=== PATIENT | male | born 1940 | race Caucasian/White ===

== ENCOUNTER → 2016-07-05 | Outpatient (CLI) | payer OTHER | END | disposition home or self-care (01) | LOC: PCVCCLINIC 16:20 | PROVIDERS: ATTEND Internal Medicine | DX: I25.10 Atherosclerotic heart disease of native coronary artery without angina pectoris (principal); I25.5 Ischemic cardiomyopathy; I10 Essential (primary) hypertension; E78.5 Hyperlipidemia, unspecified; I77.9 Disorder of arteries and arterioles, unspecified | CPT/HCPCS: 80061; 93005; G0463 ==

== ENCOUNTER → 2017-03-24 | Outpatient (CLI) | payer OTHER | END | disposition home or self-care (01) | LOC: PCVCCLINIC 13:16 | DX: I25.10 Atherosclerotic heart disease of native coronary artery without angina pectoris (principal); I25.5 Ischemic cardiomyopathy; I10 Essential (primary) hypertension; I77.9 Disorder of arteries and arterioles, unspecified; E78.2 Mixed hyperlipidemia; Z79.82 Long term (current) use of aspirin; Z79.899 Other long term (current) drug therapy | CPT/HCPCS: G0463 ==

== ENCOUNTER → 2017-09-22 | Outpatient (CLI) | payer OTHER | END | disposition home or self-care (01) | LOC: PCVCCLINIC 14:15 | DX: I25.10 Atherosclerotic heart disease of native coronary artery without angina pectoris (principal); I25.5 Ischemic cardiomyopathy; I10 Essential (primary) hypertension; I65.23 Occlusion and stenosis of bilateral carotid arteries; E78.5 Hyperlipidemia, unspecified; R94.31 Abnormal electrocardiogram [ECG] [EKG]; Z79.82 Long term (current) use of aspirin; Z79.899 Other long term (current) drug therapy | CPT/HCPCS: 80061; 93005; G0463 ==

== ENCOUNTER → 2018-02-02 | Outpatient (CLI) | payer OTHER | END | disposition home or self-care (01) | LOC: PCVCCLINIC 13:22 | PROVIDERS: ATTEND Internal Medicine | DX: I25.5 Ischemic cardiomyopathy (principal); I25.10 Atherosclerotic heart disease of native coronary artery without angina pectoris; I10 Essential (primary) hypertension; E78.00 Pure hypercholesterolemia, unspecified; I65.23 Occlusion and stenosis of bilateral carotid arteries; I47.2 Ventricular tachycardia; Z79.82 Long term (current) use of aspirin | CPT/HCPCS: 36415; 93283; G0463 ==

== ENCOUNTER → 2018-02-27 | Outpatient (CLI) | payer OTHER | END | disposition home or self-care (01) | LOC: PCVCCLINIC 12:24 | PROVIDERS: ATTEND Internal Medicine | DX: I25.10 Atherosclerotic heart disease of native coronary artery without angina pectoris (principal); I25.5 Ischemic cardiomyopathy; I10 Essential (primary) hypertension; E78.5 Hyperlipidemia, unspecified; I65.23 Occlusion and stenosis of bilateral carotid arteries; I47.2 Ventricular tachycardia; G47.33 Obstructive sleep apnea (adult) (pediatric); E78.00 Pure hypercholesterolemia, unspecified; Z79.899 Other long term (current) drug therapy | CPT/HCPCS: 93005; G0463 ==

== ENCOUNTER → 2018-06-08 | Outpatient (CLI) | payer OTHER ==
--- NOTE | 2018-06-08 16:33 | PCVCIMAG ---
APPROVED REPORT Study performed: 06/08/2018 14:07:13 EXAM: Comprehensive 2D, Doppler, and color-flow Echocardiogram Patient Location: Echo lab Room #: 3Status: routine BSA: 2.22 HR: 75 bpmBP: 128/68 mmHg Other Information Study Quality: Adequate Risk Factors: Cardiac Risk Factors: HTN, Hyperlipidemia Indications Atrial Fibrillation CAD Cardiomyopathy 2D Dimensions IVSd: 13.46 (7-11mm)LVOT Diam: 22.00 (18-24mm) LVDd: 52.31 mm PWd: 13.19 (7-11mm)Ascending Ao: 33.96 (22-36mm) LVDs: 42.26 (25-40mm) Left Atrium: 44.44 (27-40mm) Aortic Root: 32.42 mm LV Single Plane 4CH: 43.17 % LV Single Plane 2CH: 46.81 % Biplane EF: 44.3 % Volumes Left Atrial Volume (Systole) Single Plane 4CH: 119.00 mLSingle Plane 2CH: 125.15 mL LA ESV Index: 55.00 mL/m2 Aortic Valve AoV Peak Tom.: 2.69 m/s AO Peak Gr.: 32.74 mmHgLVOT Max P.27 mmHg AO Mean Gr.: 18.61 mmHgLVOT Mean P.13 mmHg AO V2 Mean: 2.08 m/sLVOT Max V: 1.15 m/s AO V2 VTI: 67.05 cmLVOT Mean V: 0.85 m/s KRISTINA (VTI): 1.42 [id number] V1 VTI: 25.67 cm KRISTINA Vmax: 1.59 cm2 SV (LVOT): 95.47 mL Mitral Valve E/A Ratio: 0.7 MV Decel. Time: 169.48 ms MV E Max Tom.: 0.97 m/s MV A Tom.: 1.40 m/s IVRT: 58.82 ms TDI E/Lateral E': 10.78E/Medial E': 13.86 Medial E' Tom.: 0.07 m/s Lateral E' Tom.: 0.09 m/s Pulmonary Valve PV Peak Tom.: 1.54 m/sPV Peak Gr.: 9.47 mmHg Pulmonary Vein P Vein S: 0.63 m/sP Vein A: 0.35 m/s P Vein D: 0.39 m/sP Vein A Dur.: 90.0 msec P Vein S/D Ratio: 1.62 Tricuspid Valve TR Peak Tom.: 3.00 m/sRAP Estimate: 7.00 mmHg TR Peak Gr.: 36.00 mmHg PA Pressure: 43.00 mmHg Left Ventricle Left ventricle is dilated. Mild concentric left ventricular hypertrophy. Left ventricular systolic function is mild to moderately decreased. Hypokinesis base of inferior, inferoseptal, and distal septal [place]. LVEF is 45%. Mild diastolic dysfunction is present (impaired relaxation pattern). Right Ventricle The right ventricle is normal size. The right ventricular systolic function is normal. Atria Left atrium is moderately dilated. Right atrium is mildly to moderately dilated. Aortic Valve Aortic valve is moderately calcified, mild-moderately stenotic. Mild aortic regurgitation. Calculated aortic valve area is 1.4 cm2 with maximum pressure gradient of 33 mmHg, mean pressure gradient of 19 mmHg. Mitral Valve There is mitral annular calcification. Severe mitral regurgitation. No evidence of mitral valve stenosis. Tricuspid Valve The tricuspid valve is normal in structure. Trace to mild tricuspid regurgitation. The pulmonary artery pressure is 40 mmHg. Pulmonic Valve The pulmonary valve is normal in structure. Trace pulmonic regurgitation. Great Vessels The aortic root is normal in size. IVC is normal in size and collapses >50% with inspiration. Pericardium There is no pericardial effusion. <Conclusion> Left ventricular systolic function is mild to moderately decreased. Hypokinesis base of inferior, inferoseptal, and distal septal [place]. LVEF is 45%. Mild diastolic dysfunction Left atrium is moderately dilated. Aortic valve is moderately calcified, mild-moderately stenotic. Mild aortic regurgitation. Calculated aortic valve area is 1.4 cm2 with maximum pressure gradient of 33 mmHg, mean pressure gradient of 19 mmHg. Mild mitral annular calcification. Severe, eccentric mitral regurgitation. Trace to mild tricuspid regurgitation. The pulmonary artery pressure is 40 mmHg. There is no pericardial effusion.
== END | disposition home or self-care (01) ==
LOC: PCVCIMAG 13:55
PROVIDERS: ATTEND Internal Medicine
DX: I08.0 Rheumatic disorders of both mitral and aortic valves (principal); I25.10 Atherosclerotic heart disease of native coronary artery without angina pectoris; I48.0 Paroxysmal atrial fibrillation; I25.5 Ischemic cardiomyopathy
CPT/HCPCS: 93306

== ENCOUNTER → 2018-06-23 | Outpatient (CLI) | payer OTHER | END | disposition home or self-care (01) | LOC: PCVCCLINIC 10:07 | PROVIDERS: ATTEND Internal Medicine | DX: I10 Essential (primary) hypertension (principal); E03.9 Hypothyroidism, unspecified; E78.5 Hyperlipidemia, unspecified | CPT/HCPCS: 36415 ==

== ENCOUNTER → 2018-07-02 | Outpatient (CLI) | payer OTHER | END | disposition home or self-care (01) | LOC: PCVCCLINIC 13:00 | PROVIDERS: ATTEND Internal Medicine | DX: I10 Essential (primary) hypertension (principal); I48.0 Paroxysmal atrial fibrillation; I25.10 Atherosclerotic heart disease of native coronary artery without angina pectoris; E78.00 Pure hypercholesterolemia, unspecified; E78.5 Hyperlipidemia, unspecified; Z95.1 Presence of aortocoronary bypass graft; Z90.49 Acquired absence of other specified parts of digestive tract; Z79.82 Long term (current) use of aspirin; Z72.89 Other problems related to lifestyle; Z79.899 Other long term (current) drug therapy | CPT/HCPCS: 36415 ==

== ENCOUNTER → 2018-10-09 | Outpatient (CLI) | payer OTHER | END | disposition home or self-care (01) | LOC: PCVCCLINIC 10:20 | PROVIDERS: ATTEND Internal Medicine | DX: I25.5 Ischemic cardiomyopathy (principal); I10 Essential (primary) hypertension; E78.5 Hyperlipidemia, unspecified; I65.23 Occlusion and stenosis of bilateral carotid arteries; I47.2 Ventricular tachycardia; I48.0 Paroxysmal atrial fibrillation; G47.33 Obstructive sleep apnea (adult) (pediatric) | CPT/HCPCS: 93005; 93283; G0463 ==

== ENCOUNTER → 2019-02-02 | Outpatient (CLI) | payer OTHER | END | disposition home or self-care (01) | LOC: PCVCCLINIC 16:00 | PROVIDERS: ATTEND Internal Medicine | DX: I25.10 Atherosclerotic heart disease of native coronary artery without angina pectoris (principal); I11.0 Hypertensive heart disease with heart failure; I50.22 Chronic systolic (congestive) heart failure; E78.5 Hyperlipidemia, unspecified; I65.23 Occlusion and stenosis of bilateral carotid arteries; I48.0 Paroxysmal atrial fibrillation; G47.33 Obstructive sleep apnea (adult) (pediatric); E78.00 Pure hypercholesterolemia, unspecified; Z90.49 Acquired absence of other specified parts of digestive tract; Z95.1 Presence of aortocoronary bypass graft; Z96.642 Presence of left artificial hip joint; Z79.899 Other long term (current) drug therapy | CPT/HCPCS: 36415; 80061; 93005; 93280; G0463 ==